=== PATIENT | female | born 1960 | race Caucasian/White ===

== ENCOUNTER → 2019-11-03 14:27 | Outpatient (CLI) | payer MEDICAID, SELFPAY ==
--- NOTE | 2019-11-03 15:02 | PET_ITS ---
EXAMINATION: FDG PET-CT INDICATIONS: A 59-year-old female with reported history of cervical spine radiographic abnormality. COMPARISON EXAMINATION: MRI of the cervical spine report dated 09/17/2019 NON-INDEX LESION SIZE SUV INTERPRETATION Right lateral neck level IIB 1.0 (max) Quantitative criteria for viable neoplasm are not fulfilled TECHNIQUE: Following the intravenous administration of F-18 deoxyglucose, multiplanar image acquisitions of the neck, chest, abdomen and pelvis to level of mid thigh, obtained at one hour post radiopharmaceutical administration contemporaneously interpreted with the current CT of the neck, chest, abdomen and pelvis, to level of mid thigh, dated 11/02/2019 via coregistration and MRI of the cervical spine report dated 09/17/2019 reveals: FINDINGS: 1. There is no quantitative scintigraphic evidence of abnormal increased glucose metabolism on meticulous inspection of whole body acquisitions to include all three axis reconstructions. 2. Normal physiologic distribution of the radiopharmaceutical is apparent in the hepatic and splenic parenchyma, both renal units, bladder and visualized intestinal tract. The visualized portion of the cerebral cortex demonstrate symmetric and preserved glucose metabolism. Diffuse radiopharmaceutical concentration is noted in all four quadrants of the abdomen and pelvis. Facilitated radiopharmaceutical concentration is noted in the pharyngeal mucosal space to the right and left of the midline contiguous to the pharyngeal constrictor musculature most consistent with physiologic tracer uptake. Subtle asymmetric increased radiopharmaceutical concentration is noted in the right lateral neck involving level IIB generating a calculated maximal standard uptake value of 1.0. Quantitative criteria for viable neoplasm are not fulfilled. Uptake corresponds to soft tissue with fatty hilus. Pertinent CT findings are as follows: CHEST: There is atherosclerotic calcification defined in the thoracic aorta without evidence of dilatation-aneurysm formation. Coronary arterial calcification is observed. Bilateral axillary and scattered mediastinal soft tissue densities are non-glucose avid. There are no parenchymal densities-nodules defined in the right and left hemithorax demonstrating discernible increased FDG uptake. ABDOMEN AND PELVIS: There is atherosclerotic calcification defined in the abdominal aorta without evidence of dilatation-aneurysm formation. Pelvic arterial calcification is observed. Focal calcification is manifest within the left renal unit. Colonic diverticulosis is noted without evidence of diverticulitis. Calcifications are noted in the bilateral lower hemipelvis in proximity to the adnexal regions without evidence of facilitated FDG uptake. A small periumbilical fat containing hernia is observed. SKELETAL: Degenerative changes are noted in the cervical, thoracic and lumbar spine. PET/PET/CT Tumor Base -Thigh Init IMPRESSION: 1. NEGATIVE EXAMINATION. There is no definitive quantitative scintigraphic evidence of viable neoplasm. 2. Meticulous attention paid to the distribution of the third cervical vertebra reveals no evidence of increased glucose metabolism. If primarily blastic skeletal neoplasia diagnostic consideration, correlation with conventional radionuclide bone scintigraphy and/or Na F-18 PET-CT bone imaging is recommended. (Brian, et al, Journal of Nuclear Medicine 33:1280, 2006). 3. Facilitated tracer uptake identified in the right lateral neck is most consistent with reactive adenopathy. Electronic Signature John Soto D.O. Accurate Quantification of SUVs for this report are calculated using the exclusive patented [employer]. Electronically Signed: John Soto DO at 23:10 EDT Tel , Service support ,
== END ==
PROVIDERS: PCP Physician Assistant Medical; Referring Provider Physician Assistant Medical; Visit Provider Physician Assistant Medical
DX: D48.0 Neoplasm of uncertain behavior of bone and articular cartilage (principal)
CPT/HCPCS: 78815; A9552